=== PATIENT | female | born 2000 | race African-American/Black ===

== ENCOUNTER 2018-06-11 22:52 | Day surgery (SDC) | payer SELFPAY ==
--- NOTE | 2018-06-11 23:52 | PDOC.FPROB ---
FMR OB H&P: HPI - History of Present Illness Chief Complaint: Decreased movement Indentification: 17 year old at 23.2 wks History of Present Illness: 17 year old at 23.2 wks presents for decreased movement. Patient states she started feeling movement around 21 weeks and it felt like her baby was moving all the time. She states for the past 24 hours she has not felt much movement at all. In addition, patient endorses bright red blood on toilet paper when wiping occasionally. She states that it appears as spots on the toilet paper. Patient denies any vaginal bleeding, vaginal discharge, LoF, or contractions. Primary Care Physician: Dr. Harmon FMR OB H&P: Current - Care : 1 Para: 0 Gestational age: 23.2 wks Due date: 10/04/2018 FMR OB H&P: History - Past Medical History PMH: Insignificant - OB History OB History: G1 - NEURO OPHTHALMOLOGIST History NEURO OPHTHALMOLOGIST History: None - Surgical History Sx History: None - Social History Social History: Denies tobacco, alcohol, or drug use during . - Family History Family History: Insignificant FMR OB H&P: Medications - Current Home Medications: Medication Instructions Recorded Confirmed Type Vit 108/Iron/Folic AC 1 tablet PO DAILY 06/11/18 06/11/18 History [ One Tablet] Allergies/Adverse Reactions: Allergies Allergy/AdvReac Type Severity Reaction Status Date / Time No Known Allergies Allergy Unverified 06/11/18 23:55 FMR OB H&P: ROS - Review of Systems General: denies: fever/chills, weight/appetite/sleep changes Eyes: denies: vision changes, double vision ENT: denies: nasal congestion, sore throat Cardiovascular: denies: chest pain, palpitation, edema Respiratory: denies: cough, congestion, shortness of breath Gastrointestinal: reports: constipation, bright red blood. denies: abdominal pain, nausea, vomiting, diarrhea, dark black tarry stools Genitourinary (Female): denies: dysuria, polyuria, vaginal discharge, vaginal pain, vaginal bleeding, contractions, vaginal pressure Musculoskeletal: denies: pain, stiffness Neurologic: denies: numbness, syncope Integumentary: denies: itching, rash, lesions Hematologic/Lymphatic: denies: prolonged or excessive bleeding Psychological: denies: depression, anxiety FMR OB H&P: Vital Signs - Maternal Vital signs: BP Pulse Temp - Heart Tones Baseline: 150 FMR OB H&P: Physical Exam - Physical Exam General: NAD, awake, alert and oriented HEENT: MMM Heart: RRR, normal S1/S2 General: CTAB, no respiratory distress Abdomen: soft, gravid, non-tender Deviation from normal: Rectal exam: good tone, few external hemorrhoids & mild internal hemorrhoid Musculoskeletal: pulses present Neurological: no tremor, no focal deficit Skin: no rash, capillary refill <2 seconds Lymphatic: no unusual bruising or bleeding, no purpura Psychiatric: intact recent and remote memory, good judgement and insight, normal mood and affect FMR OB H&P: A/P - Problem List (1) Current Visit: Yes Status: Acute Qualifiers: Weeks of gestation: 23 weeks Qualified Code(s): Z3A.23 - 23 weeks gestation of (2) Decreased movement Current Visit: Yes Status: Acute Code(s): O36.8190 - DECREASED MOVEMENTS, UNSP TRIMESTER, UNSP Qualifiers: Fetus number: single or unspecified fetus (3) Hemorrhoids Current Visit: Yes Status: Acute Code(s): K64.9 - UNSPECIFIED HEMORRHOIDS Qualifiers: Hemorrhoid type: unspecified Qualified Code(s): K64.9 - Unspecified hemorrhoids Disposition: 17 year old G1 presents with decreased movement and rectal bleeding at 23.2 wks 1. sIUP - 23.2 wks - Uncomplicated - Recent anatomy scan on 06/03 at [facility] per patient report - dopplers performed today and showed FHT's in 150's 2. Decreased movement - FHT's in 150's on dopplers - Reassured patient - Patient encouraged to follow up with Dr. Harmon as scheduled - Explained to patient that she was too early to be monitored on NST, she understood but felt reassured that dopplers showed a normal heartbeat 3. Hemorrhoids - Likely mix of internal and external hemorrhoids based on rectal exam and patient history - Encouraged patient to use OTC creams as needed Dispo: Stable. Reassured patient. Return precautions provided. D/c patient home. Follow up with Dr. Harmon as scheduled. Discussion: Date/Time: 06/11/18 7912 This H&P was discussed with Dr. Mcdonough who agrees with the above documentation and plan. Signature: Doris Melo, DO PGY-2
[2018-06-12 00:05] VITALS: BMI 34.9
[2018-06-12 00:06] VITALS: BP 126/68; TEMP 98.3
== END 2018-06-12 00:15 | disposition home or self-care (01) ==
LOC: L&D/OP 22:52
PROVIDERS: ATTEND Student in an Organized Health Care Education/Training Program
DX: O36.8120 Decreased fetal movements, second trimester, not applicable or unspecified (principal); O99.612 Diseases of the digestive system complicating pregnancy, second trimester; K64.9 Unspecified hemorrhoids; Z3A.23 23 weeks gestation of pregnancy; Z79.899 Other long term (current) drug therapy
CPT/HCPCS: 99282

== ENCOUNTER 2018-10-07 22:00 | Inpatient (IN) | payer BC, OTHER ==
[~2018-10-07 22:00] MED LIST: Bupivacaine 0.25% HCL 30 ML VIAL ONE; Lidocaine 2% MPF 10 ML AMP (For Epidural Use) ONE
[2018-10-07] MEDS ORDERED: Acetaminophen 500 MG TAB PO PRN (23:30)
[2018-10-07] MEDS ORDERED: Butorphanol Tartrate 1 MG/ML VIAL SLOW IVP PRN (23:30)
[2018-10-07] MEDS ORDERED: Ondansetron PF 4 MG/2 ML Vial IVP PRN (23:30)
[2018-10-07] MEDS ORDERED: Zolpidem Tartrate 5 MG TAB PO PRN (23:30)
[2018-10-07] MEDS ORDERED: Penicillin G Potassium 5 MILL.UNITS in Sodium Chloride 0.9% 100 ML IVPB SCH (23:30)
[2018-10-07] MEDS ORDERED: Misoprostol 200 MCG TAB PR PRN (23:30)
[2018-10-07] MEDS ORDERED: Promethazine HCl 25 MG/ML VIAL IM PRN (23:30)
[2018-10-07] MEDS ORDERED: Carboprost 250 MCG/ML AMP IM PRN (23:30)
[2018-10-07] MEDS ORDERED: Methylergonovine 0.2 MG/ML VIAL IM PRN (23:30)
[2018-10-07] MEDS ORDERED: Ibuprofen 800 MG TAB PO PRN (23:30)
[2018-10-07] MEDS ORDERED: NS / Oxytocin 40 units/1000ml 1,000 ML IV PRN (23:30)
[2018-10-07] MEDS ORDERED: Lidocaine 1% (PF) 30 ML VIAL SC PRN (23:30)
[2018-10-07] MEDS ORDERED: Diphenoxylate HCl/Atropine Tablet PO PRN (23:30)
[2018-10-07] MEDS ORDERED: NS w/ Oxytocin 10 units 500 ML IV SCH (23:30)
[2018-10-07] MEDS ORDERED: HYDROcodone/Acetaminophen 5/325 mg Tablet PO PRN (23:30)
[2018-10-07 23:40] VITALS: BMI 35.9
[2018-10-07] MEDS: Lactated Ringer's 1,000 ML IV SCH (23:45)
[2018-10-07 23:58] LABS: Hemoglobin 12.8 g/dL (12.0-16.0); Mean Corpuscular HGB CONC 32.5 g/dL (32.0-36.0); Mean Corpuscular Hemoglobin 28.6 pg (25.0-35.0); Mean Corpuscular Volume 87.9 fL (78.0-98.0); Mean Platelet Volume 8.9 fL (7.4-10.4); Platelet Count 228 thou/uL (130-400); RBC Distribution Width 14.1 % (11.5-14.5); Red Blood Cell (RBC) Count 4.47 mill/uL (4.00-5.20); White Blood Cell (WBC) Count 7.3 thou/uL (4.8-10.8)
[2018-10-08 00:36] LABS: Syphilis Antibody Nonreactive (Nonreactive); Syphilis Antibody Index 0.08 S/CO (<1.00 Non-Reactive)
[2018-10-08 00:37] LABS: HBSAg Index 0.29 S/CO (0-0.99); Hep B Surf Ag Non-Reactive S/CO (NonReactive)
[2018-10-08] MEDS: Misoprostol 100 MCG TAB VAG SCH ×2 (00:44→05:49)
[2018-10-08] MEDS: Penicillin G 2.5 MILL.units 2.5 MILL.UNITS in Premix Bag 1 BAG IVPB SCH ×4 (00:46→12:28)
[2018-10-08] MEDS: Lactated Ringer's 1,000 ML IV SCH ×2 (05:48→08:18)
[2018-10-08] MEDS ORDERED: Fentanyl 4 mcg/Bup 0.1% Cadd 100 ML ONE ×2 (07:46→14:51)
--- NOTE | 2018-10-08 08:05 | PDOC.LDHP ---
Labor and Delivery H&P Chief complaint: scheduled induction HPI: 17yo at 40w4d by LMP c/w first trimester sono for elective IOL. s/p cytotec x 1 overnight. Some painful ctx. No vB LOF> Current gestational age (weeks): 40 Due date: 10/04/18 Dating criteria: last menstrual period Grav: 1 Para: 0 Current complications: none Abnormal US findings: No Past Medical History: denies Current medications: pre- vitamins Previous surgical history: none Allergies/Adverse Reactions: Allergies Allergy/AdvReac Type Severity Reaction Status Date / Time No Known Allergies Allergy Verified 06/12/18 00:08 Social history: none - Physical Exam Vital signs reviewed and normal: yes General: NAD Heart: RRR Lungs: CTAB Abdomen: gravid Extremeties: no edema FHT: category 1 [place] contractions every: 2-4min - Vaginal Exam cm dilated: 3 Effacement: 75% Station: -2 (arom mod mec) - OB Labs Blood type: O RH: positive Antibody Screen: negative HIV: negative RPR: negative HEPSAg: negative 1 hour GCT: positive 3 hour GTT: borderline gdm GBS: positive Urine drug screen: negative Rubella: immune - Assessment L&D Assessment: elective induction at term - Plan Plan: admit to L&D, labor augmentation if indicated, GBS antibiotic prophylaxis , informed consent obtained, anesthesia consult for pain management
[2018-10-08] MEDS ORDERED: Lactated Ringer's 500 ML IV PRN (09:48)
[2018-10-08] MEDS ORDERED: Ondansetron PF 4 MG/2 ML Vial IVP PRN ×2 (09:48→18:28)
[2018-10-08] MEDS ORDERED: Promethazine HCl 25 MG/ML VIAL IM PRN ×2 (09:48→18:28)
[2018-10-08] MEDS ORDERED: Eucerin (Mineral Oil/Petrolatum,White) 30 gm Jar TOP PRN (09:48)
[2018-10-08] MEDS ORDERED: Acetaminophen 325 MG TAB PO PRN (09:48)
[2018-10-08] MEDS ORDERED: diphenhydrAMINE 50 MG/ML VIAL IVP PRN (09:48)
[2018-10-08] MEDS ORDERED: ePHEDrine/0.9% NaCl/PF SYRINGE 50 mg/10 ml SLOW IVP PRN (09:48)
[2018-10-08] MEDS ORDERED: Naloxone HCl 0.4 mg/ml Vial IVP PRN ×2 (09:48)
[2018-10-08] MEDS ORDERED: Communication Order-Pharmacy FS SCH (10:00)
[2018-10-08] MEDS ORDERED: Fentanyl 4 mcg/Bupivacaine 0.1% Cassette 100 ML EPIDURAL SCH (10:00)
--- NOTE | 2018-10-08 11:31 | PDOC.LDPN ---
Labor & Delivery Progress Note - Subjective Subjective: comfortable - Objective Vital signs reviewed and normal: yes General: NAD Uterine fundus: non tender Dilation: 6 Effacement: 90% Station: -1 FHT: category 2, late decelerations [place] contractions every: 2min IUPC placed: yes FSE placed: yes Resuscitative measures: maternal oxygen, maternal IV fluids, maternal position change, other (pitocin off) Plan: resuscitative measures (terbutaline if lates cont after turning off pitocin)
[2018-10-08] MEDS ORDERED: Terbutaline Sulfate 1 MG/ML VIAL ONE (11:52)
[2018-10-08] MEDS ORDERED: Terbutaline Sulfate 1 MG/ML VIAL SC SCH (12:45)
--- NOTE | 2018-10-08 17:45 | PDOC.OPDEL ---
OB Operative/Delivery Note Delivery Dr/Surgeon: Faustino Assist: n/a Pre-Delivery Diagnosis: elective induction Procedure/Post Delivery Dx: spontaneous vaginal delivery Weeks gestation: 40 Anesthesia: epidural - Findings A Sex: male - 1 min: 9 - 5 min: 9 - Additional Findings/Plan Placenta delivered: spontaneous Repaired Obstetrical Laceration: 2nd degree (repaired with 2-0 vicryl in usual fashion, right periurethral extending into sidewall repaired with 3-0 vicryl in usual fashion, excellent hemostasis.) Estimated blood loss: [id number] Compilations/Other Findings: No dystocia, no NC. Delayed cord clamping. Gushing of blood with separation of placenta. Placenta delivered spontaneously intact with 3VC. Bimanual massage performed. Pitocin infusioning, uterotonics called for, fundus firmed up with these maneuvers. Vaginal exam performed, lacs were briskly bleeding. Closed as efficiently as possible for hemostasis which was noted upon conclusion of repair. Appropriate lochia noted. Vital signs wnl during recovery. Check H/H. Pt asymptomatic. Hgb 12 prior to delivery. Cytotec 800mcg placed pr. Post delivery plan: routine recovery
[2018-10-08 18:23] LABS: Hemoglobin 10.5 g/dL (12.0-16.0); Mean Corpuscular HGB CONC 32.7 g/dL (32.0-36.0); Mean Corpuscular Hemoglobin 29.1 pg (25.0-35.0); Mean Platelet Volume 8.6 fL (7.4-10.4); Platelet Count 201 thou/uL (130-400); Red Blood Cell (RBC) Count 3.62 mill/uL (4.00-5.20); White Blood Cell (WBC) Count 11.2 thou/uL (4.8-10.8)
[2018-10-08] MEDS ORDERED: Preparation H Ointment 28 GM TUBE PR PRN (18:28)
[2018-10-08] MEDS ORDERED: Bisacodyl 10 MG SUPP PR PRN (18:28)
[2018-10-08] MEDS ORDERED: Lanolin Ointment 7 GM TUBE TOP PRN (18:28)
[2018-10-08] MEDS ORDERED: HYDROcodone/Acetaminophen 5/325 mg Tablet PO PRN ×2 (18:28)
[2018-10-08] MEDS ORDERED: Adacel (T-DAP) 0.5 ML SYRINGE IM ONE (18:28)
[2018-10-08] MEDS ORDERED: NS / Oxytocin 40 units/1000ml 1,000 ML IV SCH (18:28)
[2018-10-08] MEDS ORDERED: Benzocaine-Menthol 82.5 ML CAN TOP PRN (18:28)
[2018-10-08] MEDS ORDERED: Milk Of Magnesia 30 ML UDCUP PO PRN (18:28)
[2018-10-08] MEDS ORDERED: diphenhydrAMINE 25 MG CAP PO PRN (18:28)
[2018-10-08] MEDS: Ibuprofen 800 MG TAB PO SCH (22:10)
[2018-10-09] MEDS: Docusate Calcium (SURFAK) 240 MG CAP PO SCH ×3 (06:10→22:46)
[2018-10-09] MEDS: Ibuprofen 800 MG TAB PO SCH ×2 (06:11→22:46)
--- NOTE | 2018-10-09 07:33 | PDOC.PP ---
Post Progress Note Post Day #: 1 Subjective: 17 yo -->1 pp day 1 after . Pt reports she is doing well. Ambulating, tolerating PO and pain well controlled. Pt had 1600 qbl and repeat h/h showed appropriate drop in crit. Pt remains asymptomatic and vitals are stable. PO intake tolerated: yes Flatus: yes Ambulation: yes Vital Signs (12 hours) Temp Pulse Resp BP Pulse Ox 10/09/18 04:00 98.2 F 89 17 128/61 10/08/18 22:45 98.6 F 92 17 116/55 L 10/08/18 21:45 97.8 F 89 17 115/60 99 Weight Weight 107.048 kg - Physical Examination General: NAD Cardiovascular: no m/r/g, RRR Respiratory: clear to auscultation bilaterally, non-labored breathing Abdominal: + bowel sounds, no distention, appropriately TTP Neurological: no gross focal deficits Psychiatric: normal affect Result Diagrams: 10/09/18 07:20 Additional Labs: Post Labs Blood Type O POSITIVE 10/08/18 00:21 Hep Bs Antigen Non-Reactive S/CO (NonReactive) 10/07/18 23:49 (1) hemorrhage Code(s): O72.1 - OTHER IMMEDIATE HEMORRHAGE Status: Acute (2) Vaginal delivery Code(s): O80 - ENCOUNTER FOR FULL-TERM UNCOMPLICATED DELIVERY Status: Acute - Assessment/Plan 1) TIUP, delivered: pp day 1 - pt doing well - VSS and pain well controlled - cont routine PP care 2) PP hemorrhage: qbl >1600 - repeat h/h 10.5/32.3 - pt remains asymptomatic and vitals are stable - cont PNV, monitor for s/s of bleeding - likely DC home tomorrow Addendum - Attending - Attending Attestation Date/Time: 10/11/18217 I personally evaluated the patient and discussed the management with Dr. Marshall I agree with the History, Examination, Assessment and Plan documented above with any addition or exceptions noted below.
[2018-10-09 07:48] LABS: Hemoglobin 9.5 g/dL (12.0-16.0); Mean Corpuscular HGB CONC 32.9 g/dL (32.0-36.0); Mean Corpuscular Hemoglobin 28.5 pg (25.0-35.0); Mean Corpuscular Volume 86.8 fL (78.0-98.0); Mean Platelet Volume 8.8 fL (7.4-10.4); Platelet Count 174 thou/uL (130-400); RBC Distribution Width 14.1 % (11.5-14.5); Red Blood Cell (RBC) Count 3.32 mill/uL (4.00-5.20); White Blood Cell (WBC) Count 9.7 thou/uL (4.8-10.8)
[2018-10-09] MEDS: Ferrous Sulfate 325 MG TAB PO SCH ×2 (08:12→22:49)
[2018-10-09] MEDS: Prenatal Vitamin 1 TAB PO SCH (08:12)
[2018-10-10] MEDS: Ibuprofen 800 MG TAB PO SCH ×2 (06:54→06:55)
--- NOTE | 2018-10-10 07:08 | PDOC.PP ---
Post Progress Note Post Day #: 2 Subjective: 17 yo -->1 pp day #2 after . Pt reports she is doing well. Ambulating, tolerating PO and pain well controlled. Pt had 1600 qbl and repeat h/h showed appropriate drop in crit. Pt remains asymptomatic and vitals are stable. PO intake tolerated: yes Flatus: yes Ambulation: yes Vital Signs (12 hours) Temp Pulse Resp BP Pulse Ox 10/10/18 04:00 97.8 F 75 17 125/60 10/09/18 20:00 100 Weight Weight 107.048 kg - Physical Examination General: NAD Cardiovascular: no m/r/g, RRR Respiratory: clear to auscultation bilaterally Abdominal: + bowel sounds, lochia (minimal (mod period)), no distention, appropriately TTP Fundus firm & at: umbilicus Skin: no rash Neurological: no gross focal deficits Psychiatric: A&Ox3, normal affect Result Diagrams: 10/09/18 07:20 Additional Labs: Post Labs Blood Type O POSITIVE 10/08/18 00:21 Hep Bs Antigen Non-Reactive S/CO (NonReactive) 10/07/18 23:49 (1) Vaginal delivery Code(s): O80 - ENCOUNTER FOR FULL-TERM UNCOMPLICATED DELIVERY Status: Acute (2) hemorrhage Code(s): O72.1 - OTHER IMMEDIATE HEMORRHAGE Status: Acute - Assessment/Plan 1) TIUP, delivered: PPD #2 - Pt doing well, routine PP care - VSS and pain well controlled - Cont routine PP care 2) PP hemorrhage: qbl >1600 - Final h/h 9.5/28.8 - Pt remains asymptomatic and vitals are stable - Cont PNV, monitor for s/s of bleeding 3) GBS positive - Adequately treated - will need 48 hour obs Dispo: Plan to d/c home today pending nursery recs.
[2018-10-10 09:04] VITALS: BP 112/70; TEMP 97.9
[2018-10-10] MEDS: Docusate Calcium (SURFAK) 240 MG CAP PO SCH (09:29)
[2018-10-10] MEDS: Prenatal Vitamin 1 TAB PO SCH (09:29)
[2018-10-10] MEDS: Ferrous Sulfate 325 MG TAB PO SCH (09:29)
== END 2018-10-10 12:19 | disposition home or self-care (01) | DRG 806 ==
LOC: L&D 23:01 → 3SW 10-08 23:12
PROVIDERS: ADMIT Student in an Organized Health Care Education/Training Program; ATTEND Student in an Organized Health Care Education/Training Program
PROC: 3E033VJ Introduction of Other Hormone into Peripheral Vein, Percutaneous Approach (ICD-10-PCS; principal; 2018-10-08)
PROC: 10E0XZZ Delivery of Products of Conception, External Approach (ICD-10-PCS; 2018-10-08)
PROC: 0KQM0ZZ Repair Perineum Muscle, Open Approach (ICD-10-PCS; 2018-10-08)
PROC: 3E0P7VZ Introduction of Hormone into Female Reproductive, Via Natural or Artificial Opening (ICD-10-PCS; 2018-10-08)
DX: O76 Abnormality in fetal heart rate and rhythm complicating labor and delivery (principal); O72.1 Other immediate postpartum hemorrhage; Z37.0 Single live birth; O99.824 Streptococcus B carrier state complicating childbirth; Z3A.40 40 weeks gestation of pregnancy; O70.1 Second degree perineal laceration during delivery; O71.82 Other specified trauma to perineum and vulva
CPT/HCPCS: 36415; 51702; 85027; 86780; 86850; 86900; 86901; 87340; 90715; J0595; J2001; J2210; J2540; J2590; J3105; J3490; S0020

== ENCOUNTER 2019-03-16 03:16 | Emergency (ER) | payer OTHER ==
[2019-03-16 04:11] LABS: ALT (SGPT) 10 U/L (8-55); AST (SGOT) 12 U/L (5-34); Albumin 4.3 g/dL (3.5-5.0); Alkaline Phosphatase 88 U/L (40-150); Anion Gap 11 mmol/L (10-20); BUN (Urea Nitrogen) 12 mg/dL (7.0-18.7); Bilirubin, Total 0.3 mg/dL (0.2-1.2); Calc. Creatinine Clearance 0 mL/min (70-130); Calcium 9.5 mg/dL (7.8-10.44); Carbon Dioxide 25 mmol/L (22-29); Chloride 108 mmol/L (98-107); Estimated GFR-MDRD 86; Globulin 2.7 g/dL (2.4-3.5); Glucose 95 mg/dL (70-105); Sodium 140 mmol/L (136-145)
[2019-03-16 04:14] LABS: #Eosinphils 0.1 thou/uL (0.0-0.7); #Lymphocytes 1.9 thou/uL (1.20-3.40); #Monocytes 0.3 thou/uL (0.11-0.59); #Neutrophils 3.5 thou/uL (1.40-6.50); %Basophils 0.8 % (0.0-1.0); %Eosinophils 1.2 % (0.0-10.0); %Lymphocytes 32.3 % (28.0-48.0); %Monocytes 4.4 % (0.0-4.0); %Neutrophils 61.3 % (31.0-61.0); Hemoglobin 12.8 g/dL (12.0-16.0); Mean Corpuscular HGB CONC 31.6 g/dL (32.0-36.0); Mean Corpuscular Hemoglobin 26.2 pg (25.0-35.0); Platelet Count 243 thou/uL (130-400); RBC Distribution Width 14.5 % (11.5-14.5); Red Blood Cell (RBC) Count 4.86 mill/uL (4.00-5.20); White Blood Cell (WBC) Count 5.8 thou/uL (4.8-10.8)
[2019-03-16 04:21] LABS: Bilirubin Negative (Negative); Blood, Urine Negative (Negative); Clarity Turbid (Clear); Glucose, Urine (Dipstick) Normal (Negative); Leukocyte 75 Leu/uL (Negative); Nitrite Negative (Negative); Protein, Urine (Dipstick) 20 mg/dL (Neg-Trace); Urobilinogen Normal mg/dL (Less than 2)
[2019-03-16 04:22] LABS: Bacteria/HPF 1+ HPF (None Seen)
[2019-03-16 04:23] LABS: Pregnancy Test - Urine (BHCG) Negative (Negative); Pregu Control Background? CLEAR/WHITE (CLR/WHITE); Pregu Control Bar Appear? YES (CONTROL BAR); Specific Gravity 1.031 (1.002-1.036)
--- NOTE | 2019-03-16 07:33 | ULT ---
TRANSABDOMINAL PELVIC ULTRASOUND: Date: 03/16/19 INDICATION: Right lower quadrant abdominal pain for 1 day. COMPARISON: CT abdomen and pelvis dated 03/16/19 at 0434 hours. FINDINGS: Mccracken scale, color Doppler, and spectral Doppler images obtained of the pelvis via transabdominal appr [facility]. Uterus measures 10.3 x 3.3 x 6.8 cm. Endometrial stripe measures 7.6 mm, which is within normal limit s for a premenopausal female. Right ovary measures 4.9 x 3.2 x 3.0 cm. Left ovary measures 5.9 x 2.5 x 4.6 cm. There are bilateral ovarian follicular cysts. There is normal flow to both ovaries. No free fluid is evident. IMPRESSION: 1. No definite acute sonographic abnormality involving the pelvis. 2. Bilateral ovarian follicular cysts, both measuring 2.0 cm in size. 3. Normal flow to both ovaries. POS: BH
--- NOTE | 2019-03-16 07:40 | CT ---
PRELIMINARY REPORT/[facility]/EMERGENCY AFTER HOURS PROCEDURE EXAM: CT Abdomen and Pelvis With Contrast EXAM DATE/TIME: 03/16/2019 4:33 AM CLINICAL HISTORY: 18 years old, female; Abdominal pain; Acute; Patient HX: 18 y/o F presents to ED C/O rlq abd pain that began last night. No prior h/o similar pain. No h/o ovarian cyst. No h/o abd surgery. Lmp 02/28/19 TECHNIQUE: Imaging protocol: Computed tomography of the abdomen and pelvis with intravenous contrast. COMPARISON: No relevant prior studies available. FINDINGS: Lungs: The lung bases are clear. Liver: Unremarkable. Gallbladder and bile ducts: The gallbladder appears contracted. No visible gallstones by CT. No biliary tree dilation. Pancreas: Unremarkable. Spleen: Unremarkable. Adrenals: Unremarkable. Kidneys and ureters: No hydronephrosis of either kidney. No visible ureteral calculus. No perinephric fluid. The kidneys enhance homogeneously. Stomach and bowel: There are no CT findings to strongly suggest diverticulitis. Appendix: The appendix is identified and there are no suspicious findings for appendicitis. No periappendiceal/pericecal inflammatory changes are seen. Small focus of high attenuation material in the appendix may represent residual contrast from a prior exam, other ingested material, or possibly a small appendicolith. Intraperitoneal space: No free air, ascites, or bowel distention. Vasculature: No evidence for abdominal aortic aneurysm. Lymph nodes: No retroperitoneal adenopathy. Bladder: Possibly some mild diffuse urinary bladder wall thickening. While nonspecific, this could indicate evidence for cystitis. Please correlate clinically. Reproductive: The left ovary contains a 17 mm dominant follicle versus very small cyst. Significance uncertain due to relatively small size. Small amount of cul-de-sac fluid. Bones/joints: No significant acute finding. Soft tissues: No significant acute finding. IMPRESSION: 1. No evidence for appendicitis, see above. 2. No free air or bowel distention. 3. Mild urinary bladder wall thickening, see above. 4. No hydronephrosis or visible ureteral calculus. 5. The left ovary contains a 17 mm dominant follicle versus very small cyst. Significance uncertain due to relatively small size. Small amount of cul-de-sac fluid. 6. Other findings discussed above. Thank you for allowing us to participate in the care of your patient. Dictated and Authenticated by: Raghu Akhtar MD 03/16/2019 5:14 AM Central Time ([place] & [place]) FINAL REPORT EMERGENCY AFTER HOURS CT ABDOMEN AND PELVIS: HISTORY: Right lower quadrant abdominal pain that began last night. IMPRESSION: 1. No CT evidence of appendicitis. An increased density focus is seen within the appendix, probably r elated to a small appendicolith. 2. Fluid in the endometrial canal likely attributable to stage of the patient's menstrual cycle. Gloria elation is recommended. 3. Low-density structures within each adnexal region likely due to dominant follicles/ovarian cysts. Findings are in agreement with the preliminary report by Art. Code QA Transcribed Date/Time: 03/16/2019 8:14 AM
== END 2019-03-16 06:32 | disposition home or self-care (01) ==
LOC: ERS 03:16
DX: R10.31 Right lower quadrant pain (principal)
CPT/HCPCS: 74177; 76856; 80053; 81003; 81015; 81025; 85025; 93976

== ENCOUNTER 2019-08-21 21:15 | Emergency (ER) | payer MEDICAID, OTHER ==
[2019-08-21 21:55] LABS: #Basophils 0.1 thou/uL (0.0-0.2); #Lymphocytes 2.5 thou/uL (1.20-3.40); #Monocytes 0.3 thou/uL (0.11-0.59); #Neutrophils 2.8 thou/uL (1.40-6.50); %Basophils 1.6 % (0.0-1.0); %Eosinophils 0.7 % (0.0-10.0); %Lymphocytes 44.2 % (28.0-48.0); %Neutrophils 48.6 % (31.0-61.0); Hemoglobin 12.5 g/dL (12.0-16.0); Mean Corpuscular HGB CONC 31.3 g/dL (32.0-36.0); Mean Corpuscular Hemoglobin 26.2 pg (25.0-35.0); Mean Corpuscular Volume 83.8 fL (78.0-98.0); Mean Platelet Volume 9.1 fL (7.4-10.4); Platelet Count 266 thou/uL (130-400); RBC Distribution Width 13.4 % (11.5-14.5); Red Blood Cell (RBC) Count 4.77 mill/uL (4.00-5.20); White Blood Cell (WBC) Count 5.7 thou/uL (4.8-10.8)
--- NOTE | 2019-08-21 22:03 | RAD ---
Chest one view HISTORY: Chest pain. Dyspnea. FINDINGS: The cardiac silhouette and pulmonary vasculature are unremarkable. Mediastinum is midline. No confluent airspace consolidation or evidence of pneumothorax. IMPRESSION: Normal exam.
[2019-08-21 22:11] LABS: ALT (SGPT) 24 U/L (8-55); AST (SGOT) 15 U/L (5-34); Albumin 4.4 g/dL (3.5-5.0); Alkaline Phosphatase 83 U/L (40-100); Anion Gap 9 mmol/L (10-20); BUN (Urea Nitrogen) 12 mg/dL (7.0-18.7); Bilirubin, Total 0.2 mg/dL (0.2-1.2); Calc. Creatinine Clearance 0 mL/min (70-130); Calcium 10.2 mg/dL (7.8-10.44); Carbon Dioxide 26 mmol/L (22-29); Chloride 109 mmol/L (98-107); Estimated GFR-MDRD Greater than 90; Globulin 3.2 g/dL (2.4-3.5); Glucose 93 mg/dL (70-105); Potassium 3.8 mmol/L (3.5-5.1); Protein, Total 7.6 g/dL (6.0-8.3); Sodium 140 mmol/L (136-145)
== END 2019-08-21 22:58 | disposition home or self-care (01) ==
LOC: ERS 21:15
DX: R07.89 Other chest pain (principal)
CPT/HCPCS: 36415; 71045; 80053; 84484; 85025; 93005; 94760

== ENCOUNTER 2021-03-27 20:44 | Emergency (ER) | payer MEDICAID ==
[2021-03-27 21:18] LABS: #Eosinphils 0.1 thou/uL (0.0-0.7); #Lymphocytes 2.6 thou/uL (1.20-3.40); #Monocytes 0.4 thou/uL (0.11-0.59); #Neutrophils 4.5 thou/uL (1.40-6.50); %Basophils 0.3 % (0.0-1.0); %Eosinophils 1.2 % (0.0-10.0); %Lymphocytes 34.4 % (21.0-51.0); %Monocytes 4.6 % (0.0-10.0); %Neutrophils 59.4 % (42.0-75.0); Hemoglobin 11.6 g/dL (12.0-16.0); Mean Corpuscular HGB CONC 32.9 g/dL (32.0-36.0); Mean Corpuscular Hemoglobin 26.2 pg (27.0-31.0); Mean Corpuscular Volume 79.6 fL (78.0-98.0); Mean Platelet Volume 9.7 fL (7.4-10.4); Platelet Count 264 thou/uL (130-400); RBC Distribution Width 16.4 % (11.5-14.5); Red Blood Cell (RBC) Count 4.44 mill/uL (4.20-5.40); White Blood Cell (WBC) Count 7.6 thou/uL (4.8-10.8)
[2021-03-27 21:48] LABS: ALT (SGPT) 27 U/L (8-55); AST (SGOT) 31 U/L (5-34); Albumin 4.1 g/dL (3.5-5.0); Alkaline Phosphatase 92 U/L (40-110); Anion Gap 15 mmol/L (10-20); BUN (Urea Nitrogen) 10 mg/dL (7.0-18.7); Bilirubin, Total 0.3 mg/dL (0.2-1.2); Calc. Creatinine Clearance 0 mL/min (70-130); Calcium 9.3 mg/dL (7.8-10.44); Carbon Dioxide 21 mmol/L (22-29); Chloride 102 mmol/L (98-107); Glucose 290 mg/dL (70-105); Potassium 4.1 mmol/L (3.5-5.1); Protein, Total 7.1 g/dL (6.0-8.3); Sodium 134 mmol/L (136-145)
[2021-03-28 00:09] LABS: Bilirubin Negative (Negative); Blood, Urine Trace (Negative); Clarity Clear (Clear); Glucose, Urine (Dipstick) Greater than 1000 mg/dL (Negative); Ketone, Urine Trace mg/dL (Negative); Leukocyte Negative Leu/uL (Negative); Nitrite Negative (Negative); Protein, Urine (Dipstick) 10 mg/dL (Neg-Trace); RBC/HPF 0-3 HPF (0-3); Specific Gravity, Urine 1.037 (1.002-1.036); Squamous Epithelial 0-3 HPF (0-3); Urobilinogen Normal mg/dL (Less than 2); pH, Urine 5.5 (5.0-9.0)
[2021-03-28 00:10] LABS: Bacteria/HPF 1+ HPF (None Seen)
== END 2021-03-28 00:55 | disposition home or self-care (01) ==
LOC: ERS 20:44
DX: O20.0 Threatened abortion (principal)
CPT/HCPCS: 36415; 76856; 80053; 81003; 81015; 84702; 85025; 86900; 86901; 87086

== ENCOUNTER 2021-07-09 12:57 | Emergency (ER) | payer OTHER ==
[2021-07-10 00:30] LABS: SARS-CoV-2 PCR by NAA DETECTED (NotDetected)
== END 2021-07-09 17:33 | disposition home or self-care (01) ==
LOC: ERS 12:57
DX: U07.1 COVID-19 (principal)
CPT/HCPCS: 99283; U0003; U0005

== ENCOUNTER 2021-07-24 17:59 | Emergency (ER) | payer OTHER | END 2021-07-24 21:29 | disposition home or self-care (01) | LOC: ERS 17:59 | DX: J02.9 Acute pharyngitis, unspecified (principal) | CPT/HCPCS: 99283 ==

== ENCOUNTER 2022-04-22 08:34 | Emergency (ER) | payer OTHER ==
[2022-04-22 11:02] LABS: #Lymphocytes 2.2 thou/uL (1.20-3.40); #Monocytes 0.3 thou/uL (0.11-0.59); #Neutrophils 3.5 thou/uL (1.40-6.50); %Basophils 0.2 % (0.0-1.0); %Eosinophils 0.8 % (0.0-10.0); %Lymphocytes 35.8 % (21.0-51.0); %Monocytes 4.9 % (0.0-10.0); %Neutrophils 58.3 % (42.0-75.0); Hemoglobin 11.2 g/dL (12.0-16.0); Mean Corpuscular HGB CONC 30.7 g/dL (32.0-36.0); Mean Corpuscular Hemoglobin 23.6 pg (27.0-31.0); Mean Corpuscular Volume 76.8 fl (78.0-98.0); Mean Platelet Volume 9.5 fL (7.4-10.4); Platelet Count 289 thou/uL (130-400); RBC Distribution Width 15.7 % (11.5-14.5); Red Blood Cell (RBC) Count 4.76 mill/uL (4.20-5.40); White Blood Cell (WBC) Count 6.1 thou/uL (4.8-10.8)
[2022-04-22 11:30] LABS: ALT (SGPT) 9 U/L (8-55); AST (SGOT) 13 U/L (5-34); Albumin 4.2 g/dL (3.5-5.0); Alkaline Phosphatase 98 U/L (40-110); Anion Gap 10 mmol/L (10-20); BUN (Urea Nitrogen) 12 mg/dL (7.0-18.7); Bilirubin, Total 0.4 mg/dL (0.2-1.2); CK (CPK) 490 U/L (29-168); Calc. Creatinine Clearance 0 mL/min (70-130); Calcium 9.6 mg/dL (7.8-10.44); Carbon Dioxide 24 mmol/L (22-29); Chloride 110 mmol/L (98-107); Estimated GFR 81; Globulin 2.8 g/dL (2.4-3.5); Glucose 126 mg/dL (70-105); Potassium 4.7 mmol/L (3.5-5.1); Sodium 139 mmol/L (136-145)
== END 2022-04-22 11:47 | disposition home or self-care (01) ==
LOC: ERS 08:34
DX: M25.572 Pain in left ankle and joints of left foot (principal); M62.838 Other muscle spasm
CPT/HCPCS: 36415; 80053; 82550; 85025

== ENCOUNTER 2022-10-06 13:41 | Emergency (ER) | payer OTHER ==
[2022-10-06] MEDS ORDERED: predniSONE 20 MG TAB ONE (14:35)
== END 2022-10-06 14:58 | disposition home or self-care (01) ==
LOC: ERS 13:41
DX: J02.9 Acute pharyngitis, unspecified (principal); B34.9 Viral infection, unspecified
CPT/HCPCS: 87081; 87430; 99283; J7512